=== PATIENT | male | born 1980 | race Caucasian/White ===

== ENCOUNTER 2021-02-17 20:20 | Emergency (ER) | payer MEDICAID ==
[~2021-02-17] VITALS: Ht 193 cm; Wt 77.5 kg
[~2021-02-17 20:20] MED LIST: CEPH500C2 PO; DOXY-1 PO
[2021-02-17 20:59] VITALS: BP 111/71
[2021-02-17] MEDS ORDERED: CEPH500C2 PO (22:00)
[2021-02-17] MEDS ORDERED: DOXY-1 PO (22:00)
== END 2021-02-17 22:46 | disposition home or self-care (01) ==
LOC: ER 20:23
DX: L03.113 Cellulitis of right upper limb (principal); Z88.0 Allergy status to penicillin; Z88.8 Allergy status to other drugs, medicaments and biological substances; Z79.2 Long term (current) use of antibiotics
CPT/HCPCS: 99283

== ENCOUNTER 2021-02-19 08:11 | Emergency (ER) | payer MEDICAID ==
[~2021-02-19] VITALS: Ht 190.5 cm; Wt 72.7 kg
[2021-02-19 08:14] VITALS: BP 114/73
== END 2021-02-19 08:46 | disposition home or self-care (01) ==
LOC: ER 08:12
DX: L98.9 Disorder of the skin and subcutaneous tissue, unspecified (principal); Z88.0 Allergy status to penicillin; Z88.6 Allergy status to analgesic agent; Z79.899 Other long term (current) drug therapy
CPT/HCPCS: 99281

== ENCOUNTER 2021-02-22 12:03 | Emergency (ER) | payer MEDICAID ==
[~2021-02-22] VITALS: Ht 193 cm; Wt 77.7 kg
[2021-02-22 13:07] VITALS: BP 116/50
--- NOTE | 2021-02-22 15:28 | NUR ---
Patient called back to a room for the third time. Attempted to call listed number at which number was a wrong number. Dr. Kuo aware.
== END 2021-02-22 16:00 | disposition left against medical advice (07) ==
LOC: ER 12:04
DX: M25.531 Pain in right wrist (principal); Z53.21 Procedure and treatment not carried out due to patient leaving prior to being seen by health care provider

== ENCOUNTER 2021-02-24 18:18 | Emergency (ER) | payer MEDICAID ==
[~2021-02-24] VITALS: Ht 193 cm; Wt 73.4 kg
[2021-02-24 18:32] VITALS: BP 133/81
--- NOTE | 2021-02-24 21:09 | NUR ---
TURKEY SANDWICH & STRING CHEESE GIVEN TO PATIENT.
[2021-02-24] MEDS ORDERED: bacitracin 15gm ointment TP ONE (21:25)
== END 2021-02-24 21:43 | disposition home or self-care (01) ==
LOC: ER 18:19
DX: S61.501A Unspecified open wound of right wrist, initial encounter (principal); Z88.0 Allergy status to penicillin; Z88.8 Allergy status to other drugs, medicaments and biological substances; Z79.2 Long term (current) use of antibiotics; X58.XXXA Exposure to other specified factors, initial encounter; Y93.89 Activity, other specified; Y92.89 Other specified places as the place of occurrence of the external cause; Y99.8 Other external cause status
CPT/HCPCS: 99282

== ENCOUNTER 2022-02-07 11:11 | Emergency (ER) | payer MEDICAID ==
[~2022-02-07] VITALS: Ht 193 cm; Wt 86.4 kg
[2022-02-07 11:15] VITALS: BP 132/86
== END 2022-02-07 11:23 ==
LOC: ER 11:11
DX: R03.0 Elevated blood-pressure reading, without diagnosis of hypertension (principal); Z88.0 Allergy status to penicillin; Z88.6 Allergy status to analgesic agent; Z79.2 Long term (current) use of antibiotics
CPT/HCPCS: 99283

== ENCOUNTER 2022-02-08 02:12 | Emergency (ER) | payer MEDICAID ==
[~2022-02-08] VITALS: Ht 188 cm; Wt 81.8 kg
[2022-02-08 02:42] VITALS: BP 127/86
[2022-02-08] MEDS ORDERED: bacitracin 15gm ointment TP ONE (03:35)
== END 2022-02-08 04:16 | disposition home or self-care (01) ==
LOC: ER 02:12
DX: L97.529 Non-pressure chronic ulcer of other part of left foot with unspecified severity (principal); Z56.0 Unemployment, unspecified
CPT/HCPCS: 99282

== ENCOUNTER 2022-03-24 07:42 | Emergency (ER) | payer MEDICAID ==
[~2022-03-24] VITALS: Ht 193 cm; Wt 100.0 kg
[2022-03-24 07:49] VITALS: BP 123/75
== END 2022-03-24 12:50 | disposition home or self-care (01) ==
LOC: ER 07:43
DX: Z48.00 Encounter for change or removal of nonsurgical wound dressing (principal); Z59.00 Homelessness unspecified; Z56.0 Unemployment, unspecified; Z88.0 Allergy status to penicillin; Z88.6 Allergy status to analgesic agent; Z79.899 Other long term (current) drug therapy
CPT/HCPCS: 99281

== ENCOUNTER 2022-12-22 09:05 | Emergency (ER) | payer MEDICAID ==
[~2022-12-22] VITALS: Ht 195.6 cm; Wt 135.0 kg
[2022-12-22 09:18] VITALS: BP 118/81
== END 2022-12-22 13:02 | disposition home or self-care (01) ==
LOC: ER 09:06
DX: M79.672 Pain in left foot (principal); Z76.0 Encounter for issue of repeat prescription; Z59.00 Homelessness unspecified; Z56.0 Unemployment, unspecified; Z88.0 Allergy status to penicillin; Z88.6 Allergy status to analgesic agent; Z79.899 Other long term (current) drug therapy
CPT/HCPCS: 73630; 99283

== ENCOUNTER 2023-04-02 07:40 | Emergency (ER) | payer MEDICAID ==
[~2023-04-02] VITALS: Ht 188 cm; Wt 86.4 kg
[2023-04-02 08:08] VITALS: BP 126/93
== END 2023-04-02 09:08 | disposition home or self-care (01) ==
LOC: ER 07:41
DX: S00.83XA Contusion of other part of head, initial encounter (principal); Z56.0 Unemployment, unspecified; Z59.00 Homelessness unspecified; Z88.0 Allergy status to penicillin; Z88.6 Allergy status to analgesic agent; Z79.899 Other long term (current) drug therapy; W18.39XA Other fall on same level, initial encounter; Y93.89 Activity, other specified; Y92.89 Other specified places as the place of occurrence of the external cause; Y99.8 Other external cause status
CPT/HCPCS: 70450; 99284

== ENCOUNTER 2025-05-25 04:58 | Emergency (ER) | payer MEDICAID ==
[~2025-05-25] VITALS: Ht 193 cm; Wt 90.9 kg
[2025-05-25 05:04] VITALS: BP 121/82; PULSE 116; RESP 16; O2SAT 98
--- NOTE | 2025-05-25 05:37 | Physician Documentation ---
History of Present Illness ~ Chief Complaint: Wound Stated Complaint: RIGHT LEG INFECTION Time Seen by MD: 05:36 Primary Medical Doctor: N/A HPI Patient presents to the emergency room concern for tick bite that he sustained last week. He does state that the tick was engorged. No fevers Tetanus within 5 years?: Yes Medication Reconciliation Allergies: Coded Allergies: Penicillins (Verified Allergy, Unknown, 02/19/21) aspirin (Verified Allergy, Unknown, 02/19/21) Scheduled Cephalexin Monohydrate (Cephalexin), 1 CAP PO QID Doxycycline Hyclate (Doxycycline Hyclate), 1 CAP PO Q12H Past Medical History Past Medical History: No Pertinent History Past Surgical History: noncontributory Alcohol Use: None Drug Use: none Lives In: Homeless Occupation: unemployed Review of Systems ROS All review of systems negative except as per HPI Physical Exam Vital Signs: Temperature: 97.8, Heart Rate: 116, Respiratory Rate: 16, BP: 121/82, Pulse Oximetry: 98, Weight: 90.910 Oxygen Flow Rate: 0 Physical Exam General: Patient is awake, alert, oriented x4 in no acute distress Head: Normocephalic and atraumatic. Eyes: Conjunctival normal. EOMI. PERRL. ENT: Mucous membranes moist. Neck: Supple, trachea is midline. Chest: Clear to auscultation bilaterally without rales, rhonchi, or wheezes. There is no accessory muscle use or retractions. Cardiac: Tachycardic and regular without murmurs, gallops, or rubs. Extremities: 1 cm wound that has not appear infected over anterior right thigh. No fluctuance. Progress Results/Orders Results/Orders Vital Signs 05/25/25 05:04 Temp 97.8 Pulse 116 Resp 16 B/P (MAP) 121/82 Pulse Ox 98 O2 Flow Rate 0 Medical Decision Making Findings Patient presents to the emergency room with tick bite as per HPI. Differentials include but are not limited to tick bite, Lyme disease, cellulitis, abscess. Physical exam is reassuring. We will cover Lyme disease Departure Disposition: HOME / SELF CARE / HOMELESS Impression: Primary Impression: Wound Condition: Stable Discharge Instructions: Wound Care, Adult Referrals: NO PRIMARY CARE PROVIDER (PCP) Prescriptions Doxycycline Monohydrate (Doxycycline Monohydrate) 100 Mg Capsule 1 CAP PO Q12H for 10 Days, #20 CAP Prov: ABIEL CISNEROS MD 05/25/25 Education Educated: Patient Educated regarding: diagnosis, treatment, need for follow up Signature Scribe Signature: No scribe Attestation: The note accurately reflects work and decisions made by me.Abiel Cisneros MD 05/25/25 05:40 ABIEL CISNEROS MD May 25, 2025 05:37
[2025-05-25] MEDS ORDERED: DOXY-460 PO (05:40)
[2025-05-25 05:48] VITALS: TEMP 97.8
== END 2025-05-25 05:54 | disposition home or self-care (01) ==
LOC: ER 04:58
DX: S70.361A Insect bite (nonvenomous), right thigh, initial encounter (principal); Z56.0 Unemployment, unspecified; Z59.00 Homelessness unspecified; Z88.0 Allergy status to penicillin; Z88.6 Allergy status to analgesic agent; W57.XXXA Bitten or stung by nonvenomous insect and other nonvenomous arthropods, initial encounter; Y93.89 Activity, other specified; Y92.89 Other specified places as the place of occurrence of the external cause; Y99.8 Other external cause status
CPT/HCPCS: 99283

== ENCOUNTER 2025-07-05 09:36 | Emergency (ER) | payer MEDICAID | END 2025-07-05 16:47 | disposition left against medical advice (07) | LOC: ER 09:36 | DX: Z00.00 Encounter for general adult medical examination without abnormal findings (principal); Z53.21 Procedure and treatment not carried out due to patient leaving prior to being seen by health care provider; Z88.0 Allergy status to penicillin; Z88.8 Allergy status to other drugs, medicaments and biological substances ==

== ENCOUNTER 2025-09-12 20:30 | Emergency (ER) | payer MEDICAID ==
[~2025-09-12] VITALS: Ht 193 cm; Wt 81.6 kg
[2025-09-12] MEDS ORDERED: ALBU18HF2 INH (21:24)
--- NOTE | 2025-09-12 21:25 | Physician Documentation ---
History of Present Illness General Chief Complaint: Asthma Stated Complaint: SOB Time Seen by MD: 21:18 Primary Medical Doctor: N/A History of Present Illness Initial Comments This is a 45-year-old gentleman who presents for evaluation of shortness a breath accompanied by wheezing, similar to his previous asthma attacks. He had several throughout the last two days. No obvious trigger provocation. Normally treats it with the inhaler, did not treat it today. Received breathing treatment from EMS with a accompanied resolution of symptoms. At the time of my examination he denies any shortness a breath, denies chest pain, denies any fever or chills. Denies any infectious exposure. He is requesting refill for his inhaler. Denies any concerns for tobacco, alcohol or illicit substances use Medication Reconciliation Allergies: Coded Allergies: Penicillins (Verified Allergy, Unknown, 02/19/21) aspirin (Verified Allergy, Unknown, 02/19/21) Scheduled Cephalexin Monohydrate (Cephalexin), 1 CAP PO QID Doxycycline Hyclate (Doxycycline Hyclate), 1 CAP PO Q12H Past Medical History Past Medical History: No Pertinent History Past Surgical History: noncontributory Alcohol Use: None Drug Use: none Lives In: Homeless Occupation: unemployed Review of Systems ROS 10 point review of systems was performed and unless noted above in HPI is negative for acute process/complaint. Physical Exam Physical Exam Vital Signs: Temperature: 98.6, Source: Oral, Heart Rate: 101, Respiratory Rate: 16, BP: 114/75, Pulse Oximetry: 96, Weight: 81.600 Oxygen Flow Rate: 0 Physical Exam GENERAL: Awake, alert, oriented, GCS 15, no apparent distress, non-toxic appearing, answers questions, follows commands appropriately. HEENT: Atraumatic, normocephalic, pupils equal, extraocular muscles intact, sclerae anicteric, mucus membranes moist, oropharynx is clear, no stridor. NECK: supple, full active range of motion, trachea midline, no thyromegaly, no lymphadenopathy, no JVD. CARDIOVASCULAR: regular rate/rhythm, no murmurs/gallops/rubs, Pulses are 2+ in a ll extremities and symmetric. Capillary refill less than 2 seconds. PULMONARY: Nonlabored, good air movement ,no respiratory distress, speaking in full sentences, clear to auscultation bilaterally, no wheezing, no ronchi, no rales, no accessory muscle use. GASTROINTESTINAL: Soft, non-tender, non-distended, normal active bowel sounds, no organomegaly, no pulsatile masses, no CVA tenderness. NEUROLOGIC: Lucid with normal mental status. Normal facial symmetry. Moves all extremities symmetrically and with purpose. No truncal ataxia. Speech is fluid without evidence of dysarthria or aphasia, no focal deficits appreciated. MUSCULOSKELETAL: There is full range of motion of all extremities. There is no joint pain or joint swelling or joint erythema. There is no muscle pain or tenderness or swelling. EXTREMITIES: warm, well-perfused, no cyanosis, no clubbing, no edema, no acute deformities. Skin: warm, dry, no rashes or lesions, no jaundice, no petechiae orpurpura. No ecchymosis. PSYCHIATRIC: Normal affect, normal insight, normal concentration. Focused exam: [] Progress Results/Orders Results/Orders Vital Signs 09/12/25 20:41 Temp 98.6 Pulse 101 Resp 16 B/P (MAP) 114/75 Pulse Ox 96 O2 Flow Rate 0 Medical Decision Making Additional information obtaine: old records Findings Facility Status: ED Holds, RME process The plan was discussed with the patient, who demonstrates clear understanding of the plan and is in agreement with the plan unless otherwise noted in the chart. All questions have been answered, all concerns were addressed unless otherwise documented. I was available throughout their ED stay for frequent reassessment and questions. Differential Diagnoses (considered and possible or likely): [Asthma exacerbation secondary to COVID, influenza, RSV, unlikely bacterial pneumonia, idiopathic asthma exacerbation had also been considerably. Clinically unlikely to be pneumothorax. Highly unlikely to be ACS which has not no chest pain.] ??Differential Diagnoses (considered and unlikely, not requiring evaluation currently): [See above] MDM Data Please see HPI for the following: Independent Historians and external Records Review. Historian: [Patient] Independent Historians: ?[Record review] Medication Management: [Reviewed medication list] Social History and determinants: [Reviewed] Please see the body of the note for the following: Any independent interpretations of ECG, imaging studies. All vitals signs/haemodynamics, ordered tests were independently reviewed and interpreted by myself. Nursing triage complaint and vitals reviewed, additional nursing notes were reviewed as available and I agree unless otherwise noted or documented in contradiction in the chart Vital Signs: Independently reviewed Labs: Independently interpreted Imaging: Independently interpreted Old Medical Records: Independently reviewed, see HPI for relevant summary and information Pulse Oximetry: [98%] interpreted as [normal on room air] by me [Bunghole Borer: [Regular Rate, Regular rhythm, no ectopy, NSR] reviewed and interpreted by me] Additionally notably showing: [Initial tachycardia has a resolved. He is hemodynamically stable otherwise.] Tests considered but not ordered include: [Hematologic workup and imaging has been considered but does not appear to be necessary given clinical nature of diagnosis] Social Determinants of Health Impact: Patient was evaluated in [facility], or [facility] [place] to healthcare due to below par ratio of patient to medical providers. [] Comorbid Conditions Impacting Present Evaluation and Care/Treatment: [History of asthma] Management Discussions with other Healthcare Providers: [None] Treatment and Disposition Medication Management (Given or considered): []. See EMR for details Consideration for Hospitalization/Escalation/Deescalation of Care: Admission for observation has been considered, [however the patient is able to tolerate p.o., their symptoms are controlled, they are able to rely on oral medications, and their chief complaint/diagnosis can be managed on outpatient basis.] ?ED Course:?[At this time the gentleman is stable, no evidence of respiratory distress, his physical exam does not show any wheezing.] ?Shared decision making:?[Patient is hemodynamically stable for discharge home with follow with their primary care provider. [ ] Specific and cautious return precautions provided and discussed with full understanding. Any incidental findings were also discussed and follow up recommendations given. [] All questions answered. Patient/family were able to verbalize back return precautions. Patient/family agree to plan. Copies of imaging and laboratory studies were provided.] Code status:?FULL Please see the full Electronic Medical Record for full details of nursing documentation, medications list, other records of complete past medical history and conditions, vital signs, laboratory studies, and any radiologic study interpretations by radiologists. Portions of this note were completed using [employer] dictation software and as a result there may exist minor errors in spelling. I have reviewed elements of past family and social history and agree as included in note. Differential Diagnosis See body of main note for differential diagnosis Departure Disposition: HOME / SELF CARE / HOMELESS Impression: Primary Impression: Acute asthma Condition: Improved Discharge Instructions: Asthma Attack Prevention, Adult Referrals: NO PRIMARY CARE PROVIDER (PCP) Prescriptions Albuterol Sulfate (Ventolin Hfa) 90 Mcg Hfa.aer.ad 2 PUFFS INH Q4HPRN PRN for wheezing for 30 Days, #18 GM 3 Refills Prov: TOMMIE HALL DO 09/12/25 Education Educated: Patient Educated regarding: diagnosis, treatment, prognosis, need for follow up Signature Scribe Signature: No scribe Attestation: The note accurately reflects work and decisions made by me.Tommie Hall, 09/12/25 21:24 TOMMIE HALL DO Sep 12, 2025 21:25
[2025-09-12 21:47] VITALS: BP 115/74; PULSE 99; RESP 20; TEMP 98.6; O2SAT 99
== END 2025-09-12 21:48 | disposition home or self-care (01) ==
LOC: ER 20:31
DX: J45.909 Unspecified asthma, uncomplicated (principal); Z88.0 Allergy status to penicillin; Z88.6 Allergy status to analgesic agent
CPT/HCPCS: 99283